=== PATIENT | female | born 1970 | race Caucasian/White ===

== ENCOUNTER → 2023-10-28 08:15 | Outpatient (REF) | payer OTHER, SELFPAY | LOC: WDC 08:15 | PROVIDERS: ATTENDING PHYSICIAN Nurse Practitioner Family; FAMILY PHYSICIAN Nurse Practitioner | DX: R92.8 Other abnormal and inconclusive findings on diagnostic imaging of breast (principal) | CPT/HCPCS: 76642 ==

== ENCOUNTER → 2024-02-07 14:05 | Outpatient (REF) | payer OTHER, SELFPAY | LOC: WDC 14:05 | PROVIDERS: ATTENDING PHYSICIAN Nurse Practitioner Family; FAMILY PHYSICIAN Nurse Practitioner | DX: Z12.31 Encounter for screening mammogram for malignant neoplasm of breast (principal) | CPT/HCPCS: 77063; 77067 ==

== ENCOUNTER → 2024-09-30 09:45 | Outpatient (REF) | payer OTHER, SELFPAY | LOC: WDC 09:45 | PROVIDERS: ATTENDING PHYSICIAN Nurse Practitioner Family; FAMILY PHYSICIAN Nurse Practitioner | DX: R92.2 Inconclusive mammogram (principal) | CPT/HCPCS: 76641 ==

== ENCOUNTER 2024-10-26 20:28 | Emergency (ER) | payer OTHER, SELFPAY ==
[2024-10-26 20:29] VITALS: BP 143/92
[2024-10-26 21:00] VITALS: BMI 22.1
--- NOTE | 2024-10-26 22:21 | ED.GENMED ---
History of Present Illness
General
Chief Complaint: Eye Problems
Source: patient
Exam Limitations: none
Time Seen by Provider: 10/26/24 21:35
Nursing documentation reviewed up to this point in time: agreed with
History of Present Illness
History of Present Illness:
pt is a 54 y/o F
no pmh
here with R eye blurriness and photophobia affter accidentally scratchingn herself with her fingernail
she has pain and photophobia
took motrin [employer]
clear tearing
no contacts, no glasses
had lasik years ago
Past History
Past History
ED Past Medical History: None
ED Past Surgical History: None
Social History
Tobacco: Non-smoker
Alcohol: None
Personal:
Living: with family
Review of Systems
Review of Systems
Allergies reviewed?: Yes
All Other Systems: Not applicable
Phy Exam
Physical Exam
Physical Exam:
GENERAL: Alert , in no apparent distress
EYE: pupils equal and reactive
R eye clear tearing
injected conjunctiva
photophobia
equal round pupils reactive
NECK: Supple
ENT: o/p clr, mmm.
NEUROLOGICAL: Alert and oriented, no focal neuro deficits
SKIN: Warm and dry, skin intact.
PSYCH: Normal and appropriate interaction.
Course
Orders/Labs/Results
Orders:
Orders
10/26/24 22:20
Erythromycin (Ilotycin) [Erythromycin 0.5% Ophthalmic Ointment] See Dose Instructions OPHTH NOW STA
Vital Signs
Initial and Last Documented VS:
Initial Vital Signs
Temp Pulse Resp BP Pulse Ox
36.7 C 77 20 143/92 98
10/26/24 20:29 10/26/24 20:29 10/26/24 20:29 10/26/24 20:29 10/26/24 20:29
Last Documented Vital Signs
Temp Pulse Resp BP Pulse Ox
36.7 C 77 20 143/92 98
10/26/24 20:29 10/26/24 20:29 10/26/24 20:29 10/26/24 20:29 10/26/24 20:29
MDM/Problems Addressed
Differential Diagnosis Includes:
corneal abrasion, fb
MDM/Problems Addressed:
54y/o F
scratced R eye with fingernail today
pain, photophobia, tearing, redness, vision change blurry
no corrective lenses
injected conjunctiva
pupil normal
visable defect on cornea
uptake with fluroscein
tetracaine applied for relief
large abrasion seen on echevarria lamp
erythromycin ointment
given size, recommend opthalmology eval tomorrow to ensure improvement
d/c zara
*Critical Care Note
Total Time (30-74mins, 75-104mins- exclusive of procedures): Not Applicable
ED Attending Note
-
Portions of this chart may have been created with voice recognition software.� Occasional wrong word or��sound alike� substitutions may have occurred due to the inherent limitations of voice recognition software.
Discharge Plan
Departure
Patient Disposition: Home (Routine Discharge)
Date of Disposition: 10/26/24
Time of Disposition: 22:24
Patient with high blood pressure during this ER visit?: No
Condition: Fair
Covid-19: Not Applicable
Discharge Problem:
Abrasion, corneal
Instructions: Corneal Abrasion (DC)
Prescriptions:
New
erythromycin 5 mg/gram (0.5 %) ointment
0.5 inch ophthalmic (eye) QID Qty: 3.5 0RF
Rx Instructions:
apply to left eye 4 times a day for 7 days
Referrals:
Muna Morgan CRNP [Family Provider] -
Activity Restrictions/Additional Instructions:
you have a rather large scratch over your cornea. This will heal on its own but you should see an eye doctor to ensure that it is healing properly. Please call tomorrow for an appointment. In the meantime Motrin every 8 hours for pain, Tylenol
every 6 hours as needed. Apply strip of the erythromycin ointment 4 times a day for 7 days. This will prevent infection. Return for any concerns like severe pain, vision loss, fever, etc.
Interventions
Interventions:
*Risk Screen - Suicide Last Done: 10/26/24 21:00
*General Assessment Last Done: 10/26/24 20:29
*Neglect/Abuse Screening Last Done: 10/26/24 21:00
*ED COVID-19 Vaccine History Last Done: 10/26/24 21:00
Discharge Date and Time
Print Language: MALAY
[2024-10-26] MEDS: ERYTHROMYCIN 0.5% OPHTHALMIC OINTMENT 0.5 APPLIC OPHTH (22:57)
== END 2024-10-26 23:00 | disposition home or self-care (01) ==
LOC: EMR 20:28
PROVIDERS: EMERGENCY PHYSICIAN Emergency Medicine; FAMILY PHYSICIAN Nurse Practitioner
DX: S05.01XA Injury of conjunctiva and corneal abrasion without foreign body, right eye, initial encounter (principal); W50.4XXA Accidental scratch by another person, initial encounter
CPT/HCPCS: 99283

== ENCOUNTER → 2025-02-08 18:41 | Outpatient (REF) | payer OTHER, SELFPAY | LOC: WDC 18:41 | PROVIDERS: ATTENDING PHYSICIAN Obstetrics & Gynecology Gynecology; FAMILY PHYSICIAN Nurse Practitioner | DX: Z12.31 Encounter for screening mammogram for malignant neoplasm of breast (principal) | CPT/HCPCS: 77063; 77067 ==

== ENCOUNTER → 2025-04-01 14:00 | Outpatient (REF) | payer OTHER, SELFPAY | LOC: WDC 14:00 | PROVIDERS: ATTENDING PHYSICIAN Obstetrics & Gynecology Gynecology; FAMILY PHYSICIAN Nurse Practitioner | DX: R92.8 Other abnormal and inconclusive findings on diagnostic imaging of breast (principal) | CPT/HCPCS: 76642 ==

== ENCOUNTER → 2025-04-19 09:20 | Outpatient (REF) | payer OTHER, SELFPAY | LOC: RAD 09:20 | PROVIDERS: ATTENDING PHYSICIAN Internal Medicine Endocrinology, Diabetes & Metabolism; FAMILY PHYSICIAN Nurse Practitioner | DX: E04.2 Nontoxic multinodular goiter (principal) | CPT/HCPCS: 76536 ==